=== PATIENT | female | born 1940 ===

== ENCOUNTER → 2018-09-19 21:25 | Outpatient (ROUT) | payer MEDICARE, OTHER, SELFPAY ==
[2018-09-19 22:23] LABS: Alanine Aminotransferase 17 IU/L (9-52); Albumin 4.3 g/dL (3.5-5.0); Albumin Globulin Ratio 1.5 (1.0-2.8); Alkaline Phosphatase 94 U/L (38-126); Aspartate Aminotransferase 23 IU/L (14-36); BUN Creatinine Ratio 17.1 (6-22); Bilirubin Total 0.6 mg/dL (0.2-1.3); Blood Urea Nitrogen 12 mg/dL (7-17); Calcium 9.3 mg/dL (8.4-10.2); Carbon Dioxide 26 mmol/L (22-32); Chloride 102 mmol/L (98-107); Cholesterol 224 mg/dL (140-199); Estimated Glomerular Filt Rate > 60.0 mL/min (>60); Globulin 2.8 g/dL (1.7-4.1); Glucose 87 mg/dL (80-110); HDL Cholesterol 61 mg/dL (40-60); HEMOLYSIS < 15 (0-50); LDL Cholesterol Calculated 139 mg/dL (<100); Sodium 138 mmol/L (137-145); Total Protein 7.1 g/dL (6.3-8.2); Triglycerides 121 mg/dL (35-150)
[2018-09-19 22:26] LABS: High Sensitivity CRP - Cardiac 3.3 mg/L (1.0-3.0)
[2018-09-19 22:39] LABS: Progesterone, Total 0.31 ng/mL
[2018-09-19 22:40] LABS: Free T3, Triiodothyronine Free 3.22 pg/mL (2.77-5.27); Free T4, Direct Thyroxine 1.21 ng/dL (0.78-2.19); Triiodothryronine T3 Uptake 28.8 % (23.5-40.5)
[2018-09-19 22:43] LABS: Hemoglobin A1C% w Est Avg Glu 5.3 % (4.0-6.0)
[2018-09-19 22:54] LABS: Thyroid Stimulating Hormone 2.62 uIU/mL (0.47-4.68)
[2018-09-19 22:55] LABS: Estradiol, Total 12.3 pg/mL
[2018-09-23 13:49] LABS: Dehydroepiandrosterone Sulfate 76 mcg/dL (7-177); Insulin Level Total 4.1 uIU/mL (2.0-19.6)
[2018-09-23 14:45] LABS: Anti Thyroglobulin Antibody < 1 IU/mL (< 2); Thyroid Peroxidase Antibodies < 1 IU/mL (< 9)
[2018-09-23 15:45] LABS: Testosterone Free 0.5 pg/mL (0.2-3.7); Testosterone Total 8 ng/dL (2-45)
[2018-09-23 16:58] LABS: Triiodothyronine T3 Total 115 ng/dL (76-181)
[2018-09-23 17:27] LABS: Apolipoprotein B 109 mg/dL (< 90)
[2018-09-24 16:51] LABS: Homocysteine 8.4 umol/L (< 10.4)
[2018-09-24 20:26] LABS: Triiodothyronine T3 Reverse 22 ng/dL (8-25)
== END ==
PROVIDERS: Visit Provider Family Medicine
DX: R73.9 Hyperglycemia, unspecified (principal); E03.9 Hypothyroidism, unspecified; E78.5 Hyperlipidemia, unspecified; R53.83 Other fatigue; G47.9 Sleep disorder, unspecified
CPT/HCPCS: 36415; 80053; 80061; 82627; 82670; 83036; 83090; 83525; 84144; 84402; 84403; 84439; 84443; 84479; 84480; 84481; 84482; 86140; 86376; 86800